=== PATIENT | female | born 2000 | race African-American/Black ===

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

== ENCOUNTER 2019-01-16 18:18 | Emergency (ER) | payer SELFPAY ==
[~2019-01-16] VITALS: Ht 195.6 cm; Wt 105.0 kg
[2019-01-16 18:27] VITALS: TEMP 97.3
[2019-01-16 19:39] VITALS: BP 125/87; PULSE 77
== END 2019-01-16 19:39 | disposition home or self-care (01) ==
LOC: COL.ER 18:18
DX: M94.0 Chondrocostal junction syndrome [Tietze] (principal)